=== PATIENT | female | born 1955 | race Caucasian/White ===

== ENCOUNTER 2017-01-07 14:21 | Inpatient (IN) | payer OTHER ==
[~2017-01-07] VITALS: Ht 157.5 cm; Wt 40.4 kg
[2017-01-07 14:45] VITALS: BP 138/80; PULSE 71; RESP 18; O2SAT 99
--- NOTE | 2017-01-07 14:50 | NUR ---
Admit Pt direct admit from Urgent care. Pt A&OX4 and in no acute distress although c/o Rt hip pain extreme with activity. Denies CP, SOB, or nausea. No IV access at this time. Transferred via WC to bed stand pivot. Care continues waiting on orders from
[2017-01-07] MEDS ORDERED: Ondansetron 2 mg/mL 2 mL Inj IVPUSH PRN (14:55)
[2017-01-07] MEDS ORDERED: Alum-Mag Hydrox-Simeth 30 mL Suspension PO PRN (14:55)
[2017-01-07] MEDS ORDERED: Polyethylene Glycol (PEG) 17 Gm Powder PO PRN (14:55)
[2017-01-07] MEDS ORDERED: HYDROmorphone 1 mg/mL Inj IVPUSH PRN (15:00)
--- NOTE | 2017-01-07 15:04 | PCM.HPMED ---
Subjective Date of Service Jan 07, 2017 Primary Provider: Admitting Physician: Juan Carlos Tate MD Primary Care Physician: Rian Attending Physician: Juan Carlos Tate MD Admit Status: Direct Admit, Full Admit, Admit to Red Team Chief Complaint: Transferred from urgent care clinic for right hip fracture. GLF/1 hr History of Present Illness: 61-year-old lady with no significant past medical history except IBS was transferred from urgent clinic for direct admission for right hip fracture. 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 . A coworker helped her sit up in chair and brought her to urgent care clinic. XR done at showed right femoral neck fracture and transferred for admission Patient states she was seen by PCP > 2yrs ago . No known medical issues except IBS with intermittent diarrhea and constipation. Denies HTN,DM,HLD. She states she is physically active and able to ambulate and take flights of stairs without any chest pain or dyspnea. Current everyday smoker,1/2 pack/day . Never diagnosed with COPD. Denies dyspnea Review of Systems: Comprehensive review of systems performed, pertinent positives and negatives included in history of present illness Allergies Coded Allergies: morphine (Verified Adverse Reaction, Intermediate, 01/07/17) vomitting Home Medications None except Pepto-Bismol [id number] as needed for dyspepsia PMH IBS Surgical History Right wrist carpal tunnel surgery 2 Family History Mother alive at 95 with history of hypertension Father at 65 due to metastatic lung cancer Has 1 sister age 65 no known medical problems Lives with her of 20 years Social History Hx Alcohol Use: No Hx Substance Use: No Hx Tobacco Use: Yes Smoking Status: Current Every Day Smoker (1/2 pack a day for more than 30 years ) Living Arrangement: with Family (with of 20 years and 2 dogs ) Exam Vital Signs Gen. patient is lying comfortably in hospital bed, underweight HEENT: Head is normocephalic atraumatic, Pupils equal and reactive, extraocular movements intact, Lungs clear to auscultation bilaterally Heart regular rate and rhythm without murmurs gallops or rubs Abdomen soft nontender without hepatosplenomegaly Extremities right hip tenderness on passive movement Psych alert and oriented to person place and time Neuro cranial nerves II through XII are grossly intact Lymph: There is no lymphadenopathy appreciated in the cervical supra infraclavicular regions : no ho Lab and Diagnostics X-Rays, CTs and MRIs PROCEDURE: X-RAY RIGHT FEMUR, TWO VIEWS ([id number]) INDICATIONS: RT HIP PAIN AFTER INJURY TECHNIQUE: 2 views of the femur were acquired. COMPARISON: None. FINDINGS: Bones: Mildly displaced fracture of the right femoral neck. Soft tissues: No suspicious soft tissue calcifications or masses. IMPRESSION: Right femoral neck fracture. Dictated by: Edith Fuller M.D. on 01/07/2017 at 12:55 Assessment & Plan 61-year-old lady with no significant past medical history except IBS was transferred from urgent clinic for direct admission for right hip fracture. # Right femoral neck fracture,acute,poa -pain control with dilaudid, reports history of vomiting with morphine, Percocet for moderate pain -preop workup ,ekg,cxr ,cbc,cmp.UA pending -orthopedics Dr Longo reportedly notified by ,will notify her patient's arrival -dvt ppx post op lovenox # current smoker -nicotine patch prn # History of IBS, stable Full code per patient Patient admitted under inpatient status with expected length of stay > 2 midnights for severity of present symptoms, complexities of treatment plan and risk for adverse events Pain Evaluation: Adequate Pain Control Resuscitation Status: CPR: Attempt Resuscitation Juan Carlos Tate MD Jan 07, 2017 15:04
--- NOTE | 2017-01-07 15:20 | DRSVH ---
PROCEDURE: X-RAY CHEST ONE VIEW, PORTABLE ([id number]) INDICATIONS: preop TECHNIQUE: One view of the chest was acquired. COMPARISON: None. FINDINGS: Surgical changes and devices: None. Lungs and pleura: No pleural effusions or pneumothorax. Lungs are clear. Mediastinum: Mediastinal contours appear normal. Heart size is normal. Bones and chest wall: No suspicious bony lesions. Overlying soft tissues appear unremarkable. IMPRESSION: No acute process. Dictated by: Edith Fuller M.D. on 01/07/2017 at 15:19 Approved by: Edith Fuller M.D. on 01/07/2017 at 15:19
[2017-01-07 15:47] VITALS: PULSE 78
[2017-01-07 15:56] LABS: MONOCYTES % (AUTO) 6.9 % (4-12); NEUTROPHILS % (AUTO) 86.5 % (40-74)
[2017-01-07 15:57] LABS: BASOPHILS % (AUTO) 0.2 % (0-3); EOSINOPHILS % (AUTO) 0.1 % (0-5); Mean Corpuscular Hemoglobin 31.3 pg (27.0-35.0); Platelet Count 164 bil/L (150-400)
[2017-01-07 16:13] LABS: Magnesium 1.9 mg/dL (1.6-2.6)
--- NOTE | 2017-01-07 17:28 | NUR ---
Beasley Beasley catheter placed per orders from MD Longo. Beasley placed with no issues. Strict bedrest until Sx Per MD Longo. Care continues
[2017-01-07] MEDS: Ketorolac 15 mg/mL Inj IVPUSH PRN (17:57)
[2017-01-07] MEDS: D5 0.45% NaCl + KCl 20 mEq/L 1,000 ML IV SCH (17:58)
--- NOTE | 2017-01-07 18:14 | CONS ---
[address] [address] CONSULTATION REPORT PATIENT: OBDULIA SCHMID : 1955 MR#: [id number] ADMIT: 01/07/2017 JOB ID: [id number] DATE OF SERVICE: ORTHOPEDIC CONSULTATION: CPT code 05060-77 CHIEF COMPLAINT: This is a 61-year-old female, who tripped at work, sustaining a valgus impacted right femoral neck fracture. The patient is having moderate discomfort. The patient was seen in Urgent Care. X-rays revealed she had an impacted femoral neck fracture and she was then admitted to the hospitalist service. PAST MEDICAL HISTORY: Positive for irritable bowel syndrome and patient is somewhat malnourished at 80 pounds. The patient does smoke a half pack of cigarettes every day. 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 ALLERGIES: MORPHINE. PRIOR SURGERY: She has had bilateral carpal tunnel surgeries. FAMILY HISTORY: Positive for hypertension and lung cancer. The patient's significant other is her of 20 years. SOCIAL HISTORY: Patient does not drink. She does smoke daily. REVIEW OF SYSTEMS: HEENT: Denies any blurring of vision or decreased hearing. Respiratory: No shortness of breath. Cardiovascular: No chest pain. GI: No nausea, vomiting. : No dysuria. Musculoskeletal: Right hip pain. Neurologic: No headache or dizziness. Hematologic: No easy bleeding or bruising. PHYSICAL EXAMINATION: A 157 cm, 40.4 kg malnourished female. She has irritable bowel syndrome and evidently has a very limited diet. Temperature 36.9, pulse 71, respiration 18, blood pressure 138/80. Pulse ox of 99. The patient is resting in bed. She is complaining of right hip pain. The leg does not appear to be shortened. Peripheral pulses are full. Motor and sensory testing intact. Calves are soft. LABORATORY TESTING: White count 23,600, hemoglobin 14.6, hematocrit 42.5, platelet count 164,000. Sodium 140, potassium 3.7, chloride 101, CO2 24, BUN 10, creatinine 0.58. Random glucose at 104. Liver function tests within normal limits. Urinalysis is still pending. X-RAYS: Chest x-ray shows no acute pulmonary process. Pelvic x-ray and right hip x-ray shows that she has a valgus impacted right femoral neck fracture. IMPRESSION: Valgus impacted right femoral neck fracture. Leukocytosis, possibly secondary to stress reaction from the fall. This will need to be repeated. PLAN: I have reviewed the x-rays with the patient. She is aware if the fracture stays nondisplaced and impacted, she could be treated with cannulated screw fixation. If, however, the fracture shifts in position, she would require a hip prosthesis. I have explained the risks and benefits of surgery to the patient. She is aware of the risks for bleeding, infection, pain, and stiffness, possibility for damage to surrounding neurovascular structures, potential for DVT, pulmonary emboli, UT, and potential significant cardiopulmonary event. Surgical consent has been signed. We will keep the patient n.p.o. after midnight. We will order Ancef 2 g IV preoperatively. I would like to see the white count improve in time. Guevara catheter will be placed to keep the patient from trying to mobilize on and off the bedpan frequently. The patient is to remain n.p.o. after midnight. I did indicate to the patient that if screws were placed that her smoking may well deter the healing and therefore any amount of smoking she could decrease would be quite beneficial. CC: [facility] Orthopedics
[2017-01-07 20:40] VITALS: BP 108/56; PULSE 63; RESP 20; O2SAT 96
[2017-01-07 23:12] VITALS: PULSE 63
[2017-01-08] VITALS (15 sets, daily range): BP systolic 109–146; BP diastolic 62–78; PULSE 53–89; RESP 12–20; O2SAT 93–100
[2017-01-08] MEDS: Ketorolac 15 mg/mL Inj IVPUSH PRN ×3 (00:23→19:45)
[2017-01-08 05:55] LABS: APPEARANCE,URINE CLEAR (CLEAR,HAZY); COLOR,URINE YELLOW (YELLOW); OCCULT BLOOD,URINE LARGE (NEGATIVE); PH,URINE 6.5 (5.0-8.0); UROBILINOGEN,URINE NORMAL (NORMAL)
--- NOTE | 2017-01-08 05:58 | NUR ---
PAIN/ACTIVITY: Resting in bed tonight, made no attempts to get oob. Was medicated with IV Toradol x1, helpful for pain control. NPO through the night for possible surgery today. Urine sample sent to lab this am. .
[2017-01-08] MEDS ORDERED: CeFAZolin Inj 2 GM in IV Premix 1 EACH IV SCH (06:00)
[2017-01-08 08:33] LABS: BASOPHILS % (AUTO) 0.2 % (0-3); EOSINOPHILS % (AUTO) 0.7 % (0-5); MONOCYTES % (AUTO) 10.2 % (4-12); Mean Corpuscular Hemoglobin 31.3 pg (27.0-35.0); NEUTROPHILS % (AUTO) 74.4 % (40-74); Platelet Count 132 bil/L (150-400)
[2017-01-08 08:50] LABS: INR 0.99 ratio
[2017-01-08] MEDS: D5 0.45% NaCl + KCl 20 mEq/L 1,000 ML IV SCH (10:24)
--- NOTE | 2017-01-08 12:23 | DRSVH ---
PROCEDURE: X-RAY RIGHT HIP COMPLETE, MINIMUM TWO VIEWS ([id number]) INDICATIONS: femoral neck fracture TECHNIQUE: AP pelvis with lateral view(s) of the right hip(s). COMPARISON: [facility], , XR PELVIS W LATERAL HIP RT, 01/07/2017, 12:26. FINDINGS: Bones: Displaced, transcervical fracture of the proximal right femur is noted. Soft tissues: The visualized bowel gas pattern is normal. No suspicious soft tissue calcifications. IMPRESSION: Transcervical proximal right femur fracture. Dictated by: Myriam Gore MD, PhD on 01/08/2017 at 11:20 Approved by: Myriam Gore MD, PhD on 01/08/2017 at 11:21
--- NOTE | 2017-01-08 12:45 | PCM.PNMED ---
Subjective Date of Service Jan 08, 2017 Subjective pain controlled Exam Vital Signs Vital Sign - Last Date Time Temp Pulse Resp B/P Pulse Ox O2 Delivery O2 Flow Rate FiO2 01/08/17 10:01 70 01/08/17 07:55 36.7 18 113/72 98 Room Air Intake and Output 01/07/17 01/07/17 01/08/17 Cumulative From/Thru 14:59 22:59 06:59 01/07/17 15:28 - 01/08/17 06:51 Intake Total 400 ml 890 ml 1290 ml Output Total 300 ml 325 ml 625 ml Balance 100 ml 565 ml 665 ml Intake Oral 400 ml 200 ml 600 ml IV Total 690 ml 690 ml Output Urine Total 300 ml 325 ml 625 ml # Bowel Movements 0 0 0 Exam Gen. patient is lying comfortably in hospital bed, underweight HEENT: Head is normocephalic atraumatic, Pupils equal and reactive, extraocular movements intact, Lungs clear to auscultation bilaterally Heart regular rate and rhythm without murmurs gallops or rubs Abdomen soft nontender without hepatosplenomegaly Extremities right hip tenderness on passive movement Psych alert and oriented to person place and time Neuro cranial nerves II through XII are grossly intact Lymph: There is no lymphadenopathy appreciated in the cervical supra infraclavicular regions : no ho IVs and Medications Medications Reviewed: Medications were reviewed in detail Lab and Diagnostics Result Diagram: 01/08/17 0820 01/07/17 1544 X-Rays, CTs and MRIs PROCEDURE: X-RAY RIGHT FEMUR, TWO VIEWS ([id number]) INDICATIONS: RT HIP PAIN AFTER INJURY TECHNIQUE: 2 views of the femur were acquired. COMPARISON: None. FINDINGS: Bones: Mildly displaced fracture of the right femoral neck. Soft tissues: No suspicious soft tissue calcifications or masses. IMPRESSION: Right femoral neck fracture. Dictated by: Edith Fuller M.D. on 01/07/2017 at 12:55 PROCEDURE: X-RAY RIGHT HIP COMPLETE, MINIMUM TWO VIEWS ([id number]) INDICATIONS: femoral neck fracture TECHNIQUE: AP pelvis with lateral view(s) of the right hip(s). COMPARISON: [facility], CR, XR PELVIS W LATERAL HIP RT, 01/07/2017 , 12:26. FINDINGS: Bones: Displaced, transcervical fracture of the proximal right femur is noted. Soft tissues: The visualized bowel gas pattern is normal. No suspicious soft tissue calcifications. IMPRESSION: Transcervical proximal right femur fracture. Dictated by: Myriam Gore MD, PhD on 01/08/2017 at 11:20 Assessment & Plan 61-year-old lady with no significant past medical history except IBS was transferred from urgent clinic for direct admission for right hip fracture. # Right femoral neck fracture,acute,poa -pain control with dilaudid, reports history of vomiting with morphine, Percocet for moderate pain -preop workup ,ekg pending,cxr unremarkable -orthopedics Dr Longo consulted -dvt ppx post op lovenox #Asymptomatic UTI -UA with pyuria. Urine culture pending. Started ceftriaxone. # GLF -Patient states it is mechanical.UTI may be contributing. -No further workup # Initial leukocytosis -Likely stress reaction,UTI contributing # current smoker -nicotine patch prn # History of IBS, stable Full code per patient Patient admitted under inpatient status with expected length of stay > 2 midnights for severity of present symptoms, complexities of treatment plan and risk for adverse events VTE Mechanical Devices: Intermittant Pneumatic CD Resuscitation Status: CPR: Attempt Resuscitation Juan Carlos Tate MD Jan 08, 2017 12:45
[2017-01-08] MEDS ORDERED: cefTRIAXone Inj 1,000 MG in Dextrose 5% Minibag Plus 50 ML IV SCH (12:50)
--- NOTE | 2017-01-08 14:28 | NUR ---
NUTRITION ASSESSMENT: ASSESS: 61YO F admit with hip fx, made NPO for possible surgery today. Previously 100% po x 1 meal. PMHX: IBS DIET: NPO. Prev General 100% x 1 meal. LABS: Alb 4.7, Glu 104 MEDS: Reviewed GI:No BM WEIGHT: 40.4kg BMI: 16.3 EST.NEEDS: 4757-8944 kcal, 60-75g pro (30-35kcal/kg;1.2-1.5g/kg IBW) NUTRITION DIAGNOSIS: (1) Increased energy needs related to underweight status as evidenced by BMI 16.3. INTERVENTION: (1) As diet advances will include high kcal/protein supplements (Ensure) BID. MONITOR/EVALUATE: PO intake, lab values, diet advancement. F/U per moderate risk.
--- NOTE | 2017-01-08 15:15 | NUR ---
Pt to OR Pt to OR; consent in chart signed, A&Ox3, bedrest, ho cath draining to gravity, IV SL, RA, SPO2 high 90's; pain at tolerable level per pt. IV Ancef given to transporters, family in room. Report called to ORShannan.
[2017-01-08] MEDS ORDERED: Lactated Ringer's 1,000 ML IV ONE (16:18)
[2017-01-08] MEDS ORDERED: Bupivacaine-MPF 0.5% 30 mL Inj INFILTRATE ONE (17:02)
[2017-01-08] MEDS ORDERED: Lactated Ringer's 1,000 ML IV SCH (17:07)
[2017-01-08] MEDS ORDERED: Lactated Ringer's 500 ML IV PRN (17:07)
--- NOTE | 2017-01-08 17:07 | PCM.HPANE ---
Patient Data Date of Service: Jan 08, 2017 Surgeon Admitting Provider:Juan Carlos Tate MD Attending Provider:Juan Carlos Tate MD Primary Care Physician:Rian Other Provider: Reason for Visit Hip Fracture HIP FRACTURE Ht/WT & BMI Height (Feet): 5 Height (Inches): 2.00 Weight (Kilograms): 40.400 Body Mass Index 16.39 Allergies Coded Allergies: milk (Verified Allergy, Severe, Nausea,Vomiting,Diarrhea, extreme pain, ) morphine (Verified Adverse Reaction, Intermediate, Nausea,Vomiting, ) vomitting Past Anesthesia History Anesthesia History: Denies:: Abnormal Airway, Anesthesia Reactions Diabetes History Hx Diabetes?: No MRSA MRSA: No Medications Home Meds Incl Beta Joe: No No Active Prescriptions or Reported Meds History History of ENT Problems?: Yes HEENT History: Positive for:: Sinus Problem Denies:: Abnormal Airway Cataracts Dysphagia Glaucoma Denture Type: Full- Upper Teeth Condition: Within Normal Limits Hx of Heart Problems?: No Cardiovascular History: Denies:: Cardiac Surgery Chest Pain Congestive Heart Failure Edema Heart Murmur Hypertension Irregular Heartbeat Pacemaker Thrombophlebitis Hx of Respiratory Problem?: Yes Respiratory History: Positive for:: Pneumonia Denies:: Asthma COPD Chest Surgery Dyspnea Emphysema Hemoptysis Tuberculosis Hx Neurologic Problems?: No Neurological History: Denies:: Alzheimer's Disease CVA Dementia Dizziness Headaches Parkinson's Disease Seizures Hx of GI Problems?: No Other GI Pertinent History: IBS Hx of Problems?: No Genitourinary History: Denies:: HX of Hemodialysis Kidney Stones Urinary Tract Infection HX of Peritoneal Dialysis: No Female Hx: Positive for:: Problems with Breasts? (Benign tumor, s/p R. lumpectomy) Denies:: Currently Endometriosis Pelvic Inflammatory Skin History: Denies:: Pressure Ulcers Hx Musculoskeletal Problems?: Yes Musculoskeletal History: Denies:: Back Injury Joint Replacement Musculoskeletal Trauma Hx of Psycho/Social Problems?: No Psycho Social History: Denies:: Anxiety Bipolar Disorder Hx Depression Suicide Attempt Hx Surgeries?: Yes (Carpal tunnel surgery) Hx Any Other Health Problems?: Yes Other History: Denies:: Cancer Hospitalization Thyroid Disease History Blood Transfusions: Positive for:: Accept Blood Products? Denies:: Blood Transfuse Reaction Blood Transfusions Hx Diabetes: No Hx Alcohol Use: NoHx Substance Use: No Smoking Status: Current Every Day Smoker Have You Smoked inLast 12 mo: YesApprox How Many Cigarettes/day: 10 cigarettes /day Stop/Bang Treated for Sleep Apnea?: No Do You Have a CPAP Machine?: No S-Snoring: Do You Snore Loudly: No T-Tired: feel tired, fatigued: No O-Obsered: Observed not breath: No P-Blood Pressure: treated: No B- Body Mass Index > 35 kg/m2: No A- Age over 50: Yes N- Neck Large Circumference: No G- Gender Male: No GREGORIA Total Score: 0 GREGORIA Risk Assessment: Low Risk, <3 Yes Risk Assessment Category Category 1A: Patient has history of documented sleep apnea, and HAS NOT received any narcotic, sedative or anesthesia administration during this stay. Category 1B: Patient has history of documented sleep apnea, and HAS received any narcotic , sedative or anesthesia administration during this stay Category 2: Patient has SUSPECTED Obstructive Sleep Apnea, and HAS received any narcotic , sedative or anesthesia administration during this stay. Category 3: Patient has SUSPECTED Obstructive Sleep Apnea and HAS NOT received narcotic, sedative or anesthesia administration during this stay. Category 4: Outpatient in Procedural Areas with known sleep apnea or who screen positive for High Risk via the STOP/BANG questionnaire. Exam Exam Vital Signs Vital Signs Date Time Temp Pulse Resp B/P Pulse Ox O2 Delivery O2 Flow Rate FiO2 01/08/17 13:03 37.2 59 18 114/71 98 Room Air 01/08/17 10:01 70 General Appearance: Alert, Oriented X3 HEENT/AIRWAY: MP 1 Lungs: Clear to Auscultation Heart: Exam Unremarkable Meds/Labs/Diagnostics Admission Meds Current Medications Ceftriaxone Sodium/Dextrose/ Water (Rocephin Inj/ D5W Minibag Plus) 50 ml @ 100 mls/hr Q24H IV Last administered on 01/08/17t 14:04; Start 01/08/17 at 12: 50 Labs Test 01/07/17 15:44 01/08/17 05:35 01/08/17 08:20 Sodium Level 140mEq/L (134-144) Potassium Level 3.7mEq/L (3.5-5.2) Chloride Level 101mEq/L (97-108) Carbon Dioxide Level 24mmol/L (18-29) Blood Urea Nitrogen 10mg/dL (8-27) Creatinine 0.58mg/dL (0.57-1.00) Estimat Glomerular Filtration Rate 151mL/min (>59) Glucose Level 104mg/dL (60-99) Calcium Level 9.7mg/dL (8.5-10.1) Magnesium Level 1.9mg/dL (1.6-2.6) Total Bilirubin 0.4mg/dL (0.0-1.2) Aspartate Amino Transf (AST/SGOT) 25U/L (0-50) Alanine Aminotransferase (ALT/SGPT) 20U/L (0-32) Alkaline Phosphatase 70U/L (25-165) Total Protein 7.7g/dL (6.4-8.4) Albumin 4.7g/dL (3.4-5.0) Urine Color Yellow (YELLOW) Urine Appearance Clear (CLEAR,HAZY) Urine pH 6.5 (5.0-8.0) Urine Specific [place] 1.015 (1.003-1.035) Urine Protein Negativemg/dL (NEG,TRACE) Urine Glucose (UA) Negativemg/dL (NEGATIVE) Urine Ketones Negativemg/dL (NEGATIVE) Urine Occult Blood Large (NEGATIVE) Urine Nitrite Negative (NEGATIVE) Urine Bilirubin Negative (NEGATIVE) Urine Urobilinogen Normalmg/dL (NORMAL) Urine Leukocyte Esterase Trace (NEGATIVE) Urine RBC 3-10/hpf (0-2) Urine WBC 11-50/hpf (0-5) Urine Epithelial Cells Occasional/hpf (NONE-MOD) Urine Crystals None seen (NONE SEEN) Urine Bacteria Few/hpf (NONE-FEW) Urine Hyaline Casts Occasional/lpf (NONE) Urine Granular Casts None seen (NONE SEEN) Urine Waxy Casts None seen (NONE SEEN) Urine Red Blood Cell Casts None seen (NONE SEEN) Urine White Blood Cell Casts None seen (NONE SEEN) Urine Mucus Present (None Seen) Urine Trichomonas None seen (NONE SEEN) Urine Yeast None (NONE SEEN) Urinalysis Comment None Urine Culture Reflexed Indicated White Blood Count 9.9th/mm3 (3.8-10.1) Red Blood Count 3.99mil/mm3 (3.90-5.20) Hemoglobin 12.5g/dL (12.0-15.6) Hematocrit 37.1% (35.0-46.0) Mean Corpuscular Volume 93.0fL (81-100) Mean Corpuscular Hemoglobin 31.3pg (27.0-35.0) Mean Corpuscular Hemoglobin Concent 33.7% (32.0-37.0) Red Cell Distribution Width 12.6% (12.3-15.4) Platelet Count 132bil/L (150-400) Neutrophils (%) (Auto) 74.4% (40-74) Lymphocytes (%) (Auto) 14.3% (14-46) Monocytes (%) (Auto) 10.2% (4-12) Eosinophils (%) (Auto) 0.7% (0-5) Basophils (%) (Auto) 0.2% (0-3) Prothrombin Time 10.6sec (8.1-12.5) Prothromb Time International Ratio 0.99ratio Plan Impression Patient chart reviewed, patient interviewed and anesthestic plan with risks, benefits, and alternatives discussed, and informed consent obtained. NPO per Anesth. Guidelines: Yes ASA Physical Status: ASA1 Normal Healthy Anesthetic Plan: GA Bene/Risks/Altern/Consents: Yes HP Complete Prior to Induction: Yes Dayron Mott MD Jan 08, 2017 17:07
[2017-01-08] MEDS ORDERED: Dexamethasone 4 mg/mL Inj IVPUSH PRN (17:10)
[2017-01-08] MEDS ORDERED: Phenylephrine 10,000 mCg/mL Inj IVPUSH PRN (17:10)
[2017-01-08] MEDS ORDERED: MetoCLOpramide 5 mg/mL 2 mL Inj IVPUSH PRN (17:10)
[2017-01-08] MEDS ORDERED: HYDROmorphone 1 mg/mL Inj IVPUSH PRN (17:10)
[2017-01-08] MEDS ORDERED: EPHEDrine Sulfate 50 mg/mL Inj IVPUSH PRN (17:10)
[2017-01-08] MEDS ORDERED: Ondansetron 2 mg/mL 2 mL Inj IVPUSH PRN ×2 (17:10→18:30)
--- NOTE | 2017-01-08 18:13 | NUR ---
pt is off unit to OR Addendum: 01/08/17 at 1814 by ELPIDIO GRANDE CNA Amended: Links added.
--- NOTE | 2017-01-08 18:22 | PCM.ANEP1 ---
Post Anesthesia PACU Phase 1 Assessment Vital Signs Vital Signs Date Time Temp Pulse Resp B/P Pulse Ox O2 Delivery O2 Flow Rate FiO2 01/08/17 18:15 67 12 132/78 95 Room Air 01/08/17 18:10 36.7 82 16 133/63 96 Room Air 01/08/17 13:03 37.2 59 18 114/71 98 Room Air Anesthetic Administered: GA Level of Alertness: Awake, talking Pain: Yes (RN Awares and got her pain meds) Pain Scale Score: 4 Nausea or Vomiting: No CV Function & Hydration Stable: Yes Airway Device: Oxygen Delivery: Room Air Lungs: Clear to Auscultation PACU Phase 2 Assessment Complications: No Follow up Care: N/A Patient Instructions Provided: N/A Dayron Mott MD Jan 08, 2017 18:22
[2017-01-08] MEDS ORDERED: Sodium Biphos-Phos 133 mL Enema RECTAL PRN (18:30)
[2017-01-08] MEDS ORDERED: Polyethylene Glycol (PEG) 17 Gm Powder PO PRN (18:30)
[2017-01-08] MEDS ORDERED: Magnesium Hydroxide 10 mL Oral Concentration PO PRN (18:30)
[2017-01-08] MEDS ORDERED: diphenhydrAMINE 25 mg Capsule PO PRN (18:30)
[2017-01-08] MEDS: fentaNYL-PF 50 mCg/mL 2 mL Inj IVPUSH PRN ×4 (18:34→18:57)
[2017-01-08] MEDS: Senna-Docusate 8.6-50 mg Tablet PO SCH (19:58)
--- NOTE | 2017-01-08 20:21 | DRSVH ---
PROCEDURE: X-RAY PELVIS W/LAT HIP (RT) ([id number]) INDICATIONS: POST KIM TECHNIQUE: AP pelvis with lateral view(s) of the right hip(s). COMPARISON: [facility], CR, XR HIP 2VW RT, 01/08/2017, 12:04. [facility], CR , XR HIP 2VW RT, 01/08/2017, 16:47. [facility], CR, XR PELVIS W LATERAL HIP RT, 7, 12:26. FINDINGS: Bones: Open reduction and internal fixation of right femoral neck fracture with 3 surgical screws tra versing the right femoral neck. Alignment is improved. Pelvic ring appears intact. No suspicious suzanne ny lesions. Soft tissues: The visualized bowel gas pattern is normal. No suspicious soft tissue calcifications. IMPRESSION: Open reduction and internal fixation of right femoral neck fracture. Dictated by: Florencia Ledbetter M.D. on 01/08/2017 at 20:17 Approved by: Florencia Ledbetter M.D. on 01/08/2017 at 20:19
--- NOTE | 2017-01-08 22:00 | NUR ---
Post Op Pt. arrived from PACU at ~1930. A&Ox3. 2 liters of o2 via nc. Stating 99%. Pt.'s ho catheter and peripheral IV patent and intact. Ho cath draining yellow urine. Pt. reported pain and nausea upon arriving on floor. IV Zofran and IV Toradol given and effective. Will continue to monitor.
[2017-01-09] MEDS: Sodium Chloride LOK Flush 10 mL Syringe IV SCH ×3 (00:10→17:36)
[2017-01-09] MEDS ORDERED: CeFAZolin Inj 2 GM in Dextrose 5% 50 ML IV SCH (00:30)
--- NOTE | 2017-01-09 01:42 | OP ---
[address] [address] OPERATIVE REPORT PATIENT: OBDULIA SCHMID : 1955 MR#: [id number] ADMIT: 01/07/2017 JOB ID: [id number] DATE OF SURGERY: 01/08/2017 PREOPERATIVE DIAGNOSIS(ES): Valgus impacted right femoral neck fracture, ICD 10 code S72.001A. POSTOPERATIVE DIAGNOSIS(ES): Valgus impacted right femoral neck fracture, ICD 10 code S72.001A. PROCEDURE: Closed reduction and cannulated screw fixation, valgus impacted right femoral neck fracture. SURGEON: Kenneth Longo MD IMPLANTS UTILIZED: Synthes 7.3 mm cannulated screws, CPT code 69753. ANESTHESIA: General. ESTIMATED BLOOD LOSS: 35 mL. DRAINS: None. COMPLICATIONS: None. SPONGE AND NEEDLE COUNT: Correct. INDICATIONS: A 61-year-old female, who tripped and fell on January 07, 2017, sustaining a valgus impacted right femoral neck fracture. Repeat x-rays today confirmed that the fracture itself had not shifted. Decision was therefore made to place cannulated screws. PROCEDURE IN DETAIL: Under adequate general anesthetic, the patient was carefully placed on an Stuart fracture table. The right leg was placed in a very minimal amount of traction and the left leg was placed in the boot but left loose, and it was then lowered to a scissor technique to allow visualization with image intensification. After appropriate time-out was called, image intensification confirmed good position of the fracture on AP and lateral views. The right leg was prepped and draped in sterile fashion. A small incision was fashioned over the lateral aspect of the greater trochanter down through the tensor fascia joey and vastus lateralis muscle. The cannulated guide was then utilized to introduce three guide pins in a triangle fashion in the femoral neck and head. The medial and lateral guide pins were placed slightly anterior and the inferior triangle pin was placed posterior in the midline. Image intensification confirmed good position of the guide pins on AP and lateral views. Each of the guide pins were subsequently measured. Utilizing the cannulated guide, this was utilized to drill over the guide pin. This was only drilled for a small portion of the guide pin. Appropriate length short lag screws were then placed. I utilized two 80 mm screws and one 75 mm partially threaded lag screw. Each of the screws were placed across the fracture site. Image intensification confirmed good position of screws in AP and lateral views. The guide pins were subsequently removed. Permanent x-rays were taken with image intensification. The wound was irrigated with saline. Vastus lateralis was closed with a running suture of 0 Vicryl. The tensor fascia joey was closed with a [id number] suture of 0 Vicryl. Subcutaneous layers were closed with a few interrupted sutures of 2-0 Vicryl. Additional subcutaneous layers were closed with some 3-0 Monocryl and the skin was reapproximated with running subcuticular suture of 3-0 Monocryl. Mastisol and Steri-Strips were applied. A small dry sterile dressing was applied. The patient was taken carefully off the Stuart table and placed in her bed in stable condition. She was taken to the recovery room in stable condition. Sponge and needle count correct. No complications. PLAN: The patient may be partial weightbearing about 50% of her body weight with a rolling walker. I anticipate she will probably be able to mobilize with a walker and be able to be discharged to home in a couple of days. She is to remain off work at this time. 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 She will be seen in the office in two weeks for wound check and repeat x-rays. The patient is fully aware there is always the potential for delayed healing of these fractures as well as potential for loss of fracture reduction. She needs to be cautious as not to fall and break below the screws.
[2017-01-09 04:37] VITALS: BP 127/68; PULSE 59; RESP 16; O2SAT 96
[2017-01-09] MEDS: Ketorolac 15 mg/mL Inj IVPUSH PRN (05:23)
[2017-01-09 06:18] LABS: BASOPHILS % (AUTO) 0.1 % (0-3); EOSINOPHILS % (AUTO) 0.1 % (0-5); MONOCYTES % (AUTO) 9.7 % (4-12); Mean Corpuscular Hemoglobin 31.1 pg (27.0-35.0); Mean Corpuscular Volume 92.5 fL (81-100); NEUTROPHILS % (AUTO) 79.3 % (40-74); Platelet Count 126 bil/L (150-400)
[2017-01-09] MEDS ORDERED: fentaNYL-PF 50 mCg/mL 2 mL Inj ONE (07:39)
[2017-01-09] MEDS ORDERED: Dexamethasone 4 mg/mL Inj ONE (07:39)
[2017-01-09] MEDS ORDERED: EPHEDrine/NS 5 mg/mL 5 mL Syringe ONE (07:39)
[2017-01-09] MEDS ORDERED: Propofol 10,000 mCg/mL 20 mL Inj ONE (07:39)
[2017-01-09] MEDS ORDERED: Ondansetron 2 mg/mL 2 mL Inj ONE (07:39)
[2017-01-09] MEDS: Senna-Docusate 8.6-50 mg Tablet PO SCH ×2 (08:30→20:08)
--- NOTE | 2017-01-09 09:15 | PCM.PNORTH ---
Subjective Date of Service: Jan 09, 2017 Visit Information: Reason for Visit Hip Fracture Surgery/Surgery Date R HIP CANULATED SCREW 01/08/17 Post-Op Day # Date of Admission: Jan 07, 2017 at 14:34 Hospital Day # Subjective Status post day #1 right hip cannulated screw pinning. Patient states she is feeling pretty good today. Her pain is mild, feels that she is doing pretty well. She would definitely like to go home as soon as tomorrow if possible. She does have 5 steps to get into her home but feels like she should be able to do this. Postop General: No Complaints, No Shortness of Breath, No Chest Pain Objective Exam Objective Patient is alert and oriented 3. Answering questions appropriately. Patient is sitting up in the bed and not in acute distress today. Dressing is clean dry and intact. Calf is soft and nontender. Sensation and pulses intact, patient able to wiggle toes. Vital Signs and I/O Vital Sign - Last Date Time Temp Pulse Resp B/P Pulse Ox O2 Delivery O2 Flow Rate FiO2 01/09/17 04:37 36.8 59 16 127/68 96 Room Air 01/08/17 19:05 2 Intake and Output 01/08/17 01/08/17 01/09/17 Cumulative From/Thru 15:00 23:00 07:00 01/07/17 15:28 - 01/09/17 05:36 Intake Total 688 ml 1309 ml 3287 ml Output Total 800 ml 550 ml 1975 ml Balance -112 ml 759 ml 1312 ml Intake Oral 150 ml 750 ml IV Total 688 ml 1159 ml 2537 ml Output Urine Total 800 ml 550 ml 1975 ml # Bowel Movements 0 Lab & Micro Results Laboratory Tests Test 01/09/17 05:55 White Blood Count 10.8th/mm3 (3.8-10.1) Red Blood Count 3.73mil/mm3 (3.90-5.20) Hemoglobin 11.6g/dL (12.0-15.6) Hematocrit 34.5% (35.0-46.0) Mean Corpuscular Volume 92.5fL (81-100) Mean Corpuscular Hemoglobin 31.1pg (27.0-35.0) Mean Corpuscular Hemoglobin Concent 33.6% (32.0-37.0) Red Cell Distribution Width 12.5% (12.3-15.4) Platelet Count 126bil/L (150-400) Neutrophils (%) (Auto) 79.3% (40-74) Lymphocytes (%) (Auto) 10.5% (14-46) Monocytes (%) (Auto) 9.7% (4-12) Eosinophils (%) (Auto) 0.1% (0-5) Basophils (%) (Auto) 0.1% (0-3) Microbiology 01/08/17 Urine Culture - Preliminary, Resulted No growth to date Result Diagram: 01/09/17 0555 01/07/17 1544 Assessment & Plan Impression Status post day #1 right hip pinning with cannulated screw fixation. Patient's pain is stable, doing pretty well. Motivated to go home. Problems: Plan Patient will begin working with physical therapy today for gait training with front-wheeled walker. Patient able to bear weight to 50%. Patient will utilize Lovenox 30 mg subcutaneous daily for DVT prophylaxis for 3 weeks only. Patient states aspirin makes her stomach very sick and she would like to avoid this and willing to accept the risks. Patient will utilize oral narcotics including [place] while in the hospital for pain control. Anticipate that the patient will stay in the hospital for 1-2 more days. Her goal will be to go home tomorrow if possible. Resuscitation Status: CPR: Attempt Resuscitation Jason King PA-C Jan 09, 2017 09:15
--- NOTE | 2017-01-09 10:12 | DRSVH ---
PROCEDURE: X-RAY RIGHT HIP COMPLETE, MINIMUM TWO VIEWS ([id number]) INDICATIONS: C-ARM ASSISTED RIGHT HIP ARTHROPLASTY TECHNIQUE: Fluoroscopic images were obtained during an operative procedure and submitted for interpr etation following the completion of the procedure. COMPARISON: [facility], CR, XR PELVIS W LATERAL HIP RT, 01/08/2017, 18:35. [facility], CR, XR HIP 2VW RT, 01/08/2017, 12:04. FINDINGS: These fluoroscopic images were performed for intraoperative localization. On these images, right fem oral neck screws are placed. No jessica intraoperative complication is seen. Please correlate with int raoperative findings. IMPRESSION: Normal intraoperative examination. Dictated by: Bandar Bravo M.D. on 01/09/2017 at 10:10 Approved by: Bandar Bravo M.D. on 01/09/2017 at 10:11
[2017-01-09 10:13] VITALS: BP 121/66; PULSE 62; RESP 17; O2SAT 97
[2017-01-09] MEDS: oxyCODONE-Acetamin 5-325 mg Tablet PO PRN (10:19)
[2017-01-09 10:50] VITALS: PULSE 70
--- NOTE | 2017-01-09 11:38 | NUR ---
Evaluation completed. Please go to "Notes" then click on "Assessments and Notes" (bottom left corner of screen). Then select appropriate discipline tab on top of screen.
--- NOTE | 2017-01-09 13:38 | NUR ---
Social Work: Initial Assessment/Multidisciplinary Rounds D: EMR reviewed. Please see Initial Assessment linked to this note for more information. Pt is a 61 year old female admitted IN with a readmit risk score of 0 for hip fracture per H&P. Pt's insurance is [employer] and [facility]. Pt has no PCP at this time. Pt discussed in multidisciplinary rounds, pt is POD 1. PT to evaluate pt today. SW met with pt at bedside to conduct initial assessment. Pt was alert and oriented x3. SW explained role and wrote phone number on white board. SW provided [facility] Discharge Planning Checklist and encouraged pt to contact SW for any discharge planning questions. Pt lives at home with her spouse in [place]. Pt is independent with all ADLs at baseline. Pt uses no DME at baseline, but has a cane available for use at discharge. Pt drives. Pt has no HH or SNF history. Pt has no LTC or VA benefits. Pt has no DPOA on file, paperwork provided. Discussed pt's goals for discharge. Pt is motivated to return home. Pt states that her spouse can get her a walker at discharge, likely. Pt is likely to d/c home with spouse to transport via POV. SW will continue to follow for any additional d/c needs. A: Pt who is independent at baseline and has the capacity for self-care. P: Pt anticipated to discharge home with spouse to transport via POV pending PT evaluation. No SW needs identified, no MD orders received at this time. PT to evaluate pt. SW will continue to follow for needs until time of discharge. JAXON Munoz Addendum: 01/09/17 at 1342 by RAVINDRA LIZAMA Amended: Links added.
--- NOTE | 2017-01-09 14:16 | PCM.PNMED ---
Subjective Date of Service Jan 09, 2017 Subjective pain controlled Exam Vital Signs Vital Sign - Last Date Time Temp Pulse Resp B/P Pulse Ox O2 Delivery O2 Flow Rate FiO2 01/09/17 10:50 70 01/09/17 10:13 36.7 17 121/66 97 Room Air 01/08/17 19:05 2 Intake and Output 01/08/17 01/08/17 01/09/17 Cumulative From/Thru 15:00 23:00 07:00 01/07/17 15:28 - 01/09/17 05:36 Intake Total 688 ml 1309 ml 3287 ml Output Total 800 ml 550 ml 1975 ml Balance -112 ml 759 ml 1312 ml Intake Oral 150 ml 750 ml IV Total 688 ml 1159 ml 2537 ml Output Urine Total 800 ml 550 ml 1975 ml # Bowel Movements 0 Exam Gen. patient is lying comfortably in hospital bed, underweight HEENT: Head is normocephalic atraumatic, Pupils equal and reactive, extraocular movements intact, Lungs clear to auscultation bilaterally Heart regular rate and rhythm without murmurs gallops or rubs Abdomen soft nontender without hepatosplenomegaly Extremities right hip tenderness on passive movement Psych alert and oriented to person place and time Neuro cranial nerves II through XII are grossly intact Lymph: There is no lymphadenopathy appreciated in the cervical supra infraclavicular regions : no ho IVs and Medications Medications Reviewed: Medications were reviewed in detail Lab and Diagnostics Result Diagram: 01/09/17 0555 01/07/17 1544 X-Rays, CTs and MRIs PROCEDURE: X-RAY RIGHT FEMUR, TWO VIEWS ([id number]) INDICATIONS: RT HIP PAIN AFTER INJURY TECHNIQUE: 2 views of the femur were acquired. COMPARISON: None. FINDINGS: Bones: Mildly displaced fracture of the right femoral neck. Soft tissues: No suspicious soft tissue calcifications or masses. IMPRESSION: Right femoral neck fracture. Dictated by: Edith Fuller M.D. on 01/07/2017 at 12:55 PROCEDURE: X-RAY RIGHT HIP COMPLETE, MINIMUM TWO VIEWS ([id number]) INDICATIONS: femoral neck fracture TECHNIQUE: AP pelvis with lateral view(s) of the right hip(s). COMPARISON: [facility], CR, XR PELVIS W LATERAL HIP RT, 01/07/2017 , 12:26. FINDINGS: Bones: Displaced, transcervical fracture of the proximal right femur is noted. Soft tissues: The visualized bowel gas pattern is normal. No suspicious soft tissue calcifications. IMPRESSION: Transcervical proximal right femur fracture. Dictated by: Myriam Gore MD, PhD on 01/08/2017 at 11:20 Additional Diagnostics DATE OF SURGERY: 01/08/2017 PREOPERATIVE DIAGNOSIS(ES): Valgus impacted right femoral neck fracture, ICD 10 code S72.001A. POSTOPERATIVE DIAGNOSIS(ES): Valgus impacted right femoral neck fracture, ICD 10 code S72.001A. PROCEDURE: Closed reduction and cannulated screw fixation, valgus impacted right femoral neck fracture. SURGEON: Kenneth Longo MD IMPLANTS UTILIZED: Synthes 7.3 mm cannulated screws, CPT code 00733. ANESTHESIA: General. ESTIMATED BLOOD LOSS: 35 mL. DRAINS: None. COMPLICATIONS: None. SPONGE AND NEEDLE COUNT: Correct. Assessment & Plan 61-year-old lady with no significant past medical history except IBS was transferred from urgent clinic for direct admission for right hip fracture. # Right femoral neck fracture s/p Closed reduction and cannulated screw fixation , valgus impacted right femoral neck fracture.,acute,poa -pain control with dilaudid, reports history of vomiting with morphine, Percocet for moderate pain -orthopedics Dr Longo consulted -dvt ppx post op lovenox #Asymptomatic UTI -UA with pyuria. Urine culture no growth . Started ceftriaxone.discontinued today # GLF -Patient states it is mechanical.UTI may be contributing. -No further workup # Initial leukocytosis -Likely stress reaction,UTI contributing # current smoker -nicotine patch prn # History of IBS, stable Full code per patient Patient admitted under inpatient status with expected length of stay > 2 midnights for severity of present symptoms, complexities of treatment plan and risk for adverse events VTE Mechanical Devices: Intermittant Pneumatic CD Resuscitation Status: CPR: Attempt Resuscitation Juan Carlos Tate MD Jan 09, 2017 14:16
--- NOTE | 2017-01-09 18:47 | NUR ---
ACTIVITY/PAIN/ Patient has reported very minimal pain throughout the day. Administered 1 tab of percocet prior to first therapy session. Patient did very well, ambulating with FWW and able to maintain 50% WB. Ambulated in hallway with therapy. Guevara catheter was d/c'd in AM and patient was able to void spontaneously. Although complaining of burning sensation when voiding. Order to send another UA was obtained.
[2017-01-09 20:04] LABS: APPEARANCE,URINE CLEAR (CLEAR,HAZY); COLOR,URINE YELLOW (YELLOW); OCCULT BLOOD,URINE SMALL (NEGATIVE); PH,URINE 5.5 (5.0-8.0); UROBILINOGEN,URINE NORMAL (NORMAL)
[2017-01-09 20:30] VITALS: BP 123/72; PULSE 64; RESP 16; O2SAT 94
[2017-01-10 00:18] VITALS: PULSE 64
[2017-01-10 00:30] VITALS: BP 110/63; PULSE 63; RESP 18; O2SAT 95
[2017-01-10] MEDS: Sodium Chloride LOK Flush 10 mL Syringe IV SCH ×2 (00:37→09:26)
--- NOTE | 2017-01-10 03:47 | NUR ---
Pain/activity Pt reporting minimal pain 2/10 and just requested Tylenol at bedtime. Pt getting up SBA and FWW to BR and tolerating activity well. Bulky dressing to right hip is CDI. Pt on tele SR 60s. Pt has been able to sleep through most of shift.
[2017-01-10 04:40] VITALS: BP 124/64; PULSE 61; RESP 20; O2SAT 96
[2017-01-10] MEDS: oxyCODONE-Acetamin 5-325 mg Tablet PO PRN (04:51)
[2017-01-10 07:55] VITALS: BP 122/72; PULSE 70; RESP 18; O2SAT 98
--- NOTE | 2017-01-10 08:48 | PCM.DIMED ---
Discharge Instructions Date of Service Jan 10, 2017 Dates of Hospitalization Jan 07, 2017 at 14:34 Discharge Diagnosis Discharge Diagnosis # Right femoral neck fracture underwent Closed reduction and cannulated screw fixation, acute,poa # Mechanical GLF # current smoker # History of IBS, stable Patient Instructions Patient Instructions You were hospitalist due to Right femoral neck fracture and underwent Closed reduction and cannulated screw fixation . Please continue Lovenox 30 mg subcutaneous daily for DVT prophylaxis for 3 weeks. Follow-up with orthopedics clinic in 2 weeks. Please take Pruden for pain control. Follow-up with PCP in: 1 week Provider: Kenneth Longo MD Follow-up in: 2 weeks Juan Carlos Tate MD Jan 10, 2017 08:48
[2017-01-10] MEDS ORDERED: POLY17PO6 PO (08:50)
[2017-01-10] MEDS ORDERED: OXYC1TAB24 PO (08:50)
[2017-01-10] MEDS ORDERED: DOCU-41 PO (08:50)
[2017-01-10] MEDS ORDERED: LOV30 SUBQ (08:50)
[2017-01-10 09:15] VITALS: PULSE 58
--- NOTE | 2017-01-10 09:15 | PCM.PNORTH ---
Subjective Date of Service: Jan 10, 2017 Visit Information: Reason for Visit Hip Fracture Surgery/Surgery Date R HIP CANULATED SCREW 01/08/17 Post-Op Day # 2 Date of Admission: Jan 07, 2017 at 14:34 Hospital Day # Subjective Patient reports some tenderness at the incision site. Overall she is doing quite well and would like to home today. She understands that she will be 50% weightbearing with a walker. Postop General: No Complaints, No Shortness of Breath, No Chest Pain, Good Appetite Objective Exam Objective Patient is seen sitting up at the edge of bed eating breakfast Vital Signs and I/O Vital Sign - Last Date Time Temp Pulse Resp B/P Pulse Ox O2 Delivery O2 Flow Rate FiO2 01/10/17 07:55 36.7 70 18 122/72 98 Room Air 01/08/17 19:05 2 Intake and Output 01/09/17 01/09/17 01/10/17 Cumulative From/Thru 15:00 23:00 07:00 01/07/17 15:28 - 01/09/17 18:42 Intake Total 914 ml 4201 ml Output Total 1400 ml 3375 ml Balance -486 ml 826 ml Intake Oral 800 ml 1550 ml IV Total 114 ml 2651 ml Output Urine Total 1400 ml 3375 ml # Bowel Movements 0 Lab & Micro Results Laboratory Tests Test 01/09/17 19:30 Urine Color Yellow (YELLOW) Urine Appearance Clear (CLEAR,HAZY) Urine pH 5.5 (5.0-8.0) Urine Specific [place] 1.010 (1.003-1.035) Urine Protein Negativemg/dL (NEG,TRACE) Urine Glucose (UA) Negativemg/dL (NEGATIVE) Urine Ketones Negativemg/dL (NEGATIVE) Urine Occult Blood Small (NEGATIVE) Urine Nitrite Negative (NEGATIVE) Urine Bilirubin Negative (NEGATIVE) Urine Urobilinogen Normalmg/dL (NORMAL) Urine Leukocyte Esterase Small (NEGATIVE) Urine RBC 3-10/hpf (0-2) Urine WBC 6-10/hpf (0-5) Urine Epithelial Cells Moderate/hpf (NONE-MOD) Urine Crystals None seen (NONE SEEN) Urine Bacteria None/hpf (NONE-FEW) Urine Hyaline Casts None/lpf (NONE) Urine Granular Casts None seen (NONE SEEN) Urine Waxy Casts None seen (NONE SEEN) Urine Red Blood Cell Casts None seen (NONE SEEN) Urine White Blood Cell Casts None seen (NONE SEEN) Urine Mucus None seen (None Seen) Urine Trichomonas None seen (NONE SEEN) Urine Yeast None (NONE SEEN) Urinalysis Comment None Urine Culture Reflexed Indicated Microbiology 01/09/17 Urine Culture - Preliminary, Resulted No growth to date Result Diagram: 01/09/17 0555 01/07/17 1544 General Appearance: Alert, Oriented X3, Cooperative, No Acute Distress Extremities: Distal Pulses Palpable, No Compartment Syndrom Noted, Thigh & Calf Soft/Nontender Postop Sensory Motor: Distal Motor Intact, Distal Sensation Intact, NVI Distally SURGICAL WOUND : Wound Location/Description Right hip: Surgical dressing is removed. There is minimal amount of dried serous drainage. The wound is cleansed with hydrogen peroxide. Steri-Strips are intact the wound is closed with Monocryl suture which is running externally to the wound and secured with Steri-Strips. There is no acute drainage or erythema present. There is mild swelling. The wound is dressed with 4 x 4 gauze and Tegaderm dressing Activity: Activity per PT Catheters: None Assessment & Plan Impression POD #2 status post right hip ORIF with cannulated screws Problems: Plan Weightbearin% weightbearing with front-wheeled walker DVT prophylaxis: Lovenox 30 mg subcutaneous 3 weeks. We will not use aspirin after 3 weeks due to patient's sensitivity to aspirin. Physical therapy for transfers, progressive ambulation, therapeutic exercise Wound care: Dressing was changed today by ALEX to 4 x 4 gauze and Tegaderm. Wound care at home: Patient may shower with wound covered. On Sunday the dressing may be removed and patient may shower with wound uncovered. Leave Steri-Strips in place. Do not touch her handle the wound. There are sutures externally at the wound. The patient may shower if the wound has no drainage present. Wound may be uncovered to shower. Let soap and water run over the wound , pat dry and apply a new dressing. Discharge plan: Discharge home today Follow-up plan: In 2 weeks at [facility] with ALEX for wound check and at [address] Longo with x-rays Pain Management: Percocet, Tylenol VTE Prophylaxis: Sub-Q Enoxaparin, SCDs Resuscitation Status: CPR: Attempt Resuscitation BurkeMargaret Mg PA-C Jan 10, 2017 09:15
--- NOTE | 2017-01-10 09:20 | PCM.DIORTH ---
Ortho Discharge Instruction Date of Service: Jan 10, 2017 Dates of Hospitalization Date of Hospital Admission Jan 07, 2017 at 14:34 Providers Admitting Physician: Juan Carlos Tate MD Primary Care Physician: Rian Attending Physician: Juan Carlos Tate MD Activity Discharge Activity-General: Try not to overdue, Be up and about, Balance rest and activity Right Lower Extremity: % of Weight Bearing (50%) Discharge Assist Device: Front Wheeled Walker Dressing and Incisional Care Discharge Dressing Care: Keep dressing clean, dry & intact Discharge Hygiene: May shower (see instructions below) Additional Instructions Discharge Instructions Weightbearin% weightbearing with front-wheeled walker DVT prophylaxis: Lovenox 30 mg subcutaneous 3 weeks. We will not use aspirin after 3 weeks due to patient's sensitivity to aspirin. Wound care at home: Patient may shower with wound covered with the Tegaderm ( plastic) dressing in place On Sunday the plastic dressing may be removed and patient may shower with wound uncovered. Leave Steri-Strips in place. Do not touch or handle the wound. There are sutures externally at the wound. They are held in place with the Steri strips. The patient may shower if the wound has no drainage present. Wound may be uncovered to shower. Let soap and water run over the wound, pat dry and apply a new dressing. Follow Up Plan Follow Up Plan Follow-up and [facility] in 2 weeks with ALEX for wound check, and at [address] Longo with x-rays Call your provider for: Fever, Chills, Shortness of breath, Vomitting, Drainage at incision (that is increasing), Wound redness (that is spreading), Increasing pain (for no reason) Margaret Oglesby PA-C Jan 10, 2017 09:20
--- NOTE | 2017-01-10 09:20 | NUR ---
Social Work- Discharge Data: EMR reviewed. Pt is on day 3 of hospitalization. Pt to discharge today, discharge orders are active at this time. No orders received at this time other than anticipate d/c to home. SW met with pt at bedside to confirm d/c plan. Pt confirms that she has obtained a fww for use at home. PT will work with pt on stairs prior to d/c. Pt to d/c home with her spouse to transport via POV. No additional d/c planning needs. Assessment: Pt who is independent at baseline Plan: Pt to d/c home with spouse to transport via POV. No additional d/c planning needs. Amber Pozo, PENSION CONSULTANT
[2017-01-10] MEDS: Senna-Docusate 8.6-50 mg Tablet PO SCH (09:27)
--- NOTE | 2017-01-10 15:09 | NUR ---
Discharge Pt to discharge to home, waiting for her ride to pick her up. A&Ox3, up to BR ind with FWW, 50% weight bearing R LE, PT taught pt proper use/fit of crutches today to which pt did well with. Pt given written and verbal instructions on dressing change and care of wound, s/s of infection or complications, Lovenox teaching and return demonstration performed, pt given Rx's and instructions on times and dosages of medications to which she states understanding. Pt to f/u with her PCP within 1 week to which she states she does not have, f/u with Dr Longo in 2 weeks and then again in 6 wks with x-ray before appt and phone number of clinic to call and schedule times to which pt states understanding. research staff member wheeled pt and all personal belongings off unit with pt.
--- NOTE | 2017-01-10 17:51 | PCM.DC.MED ---
Discharge Summary Date of Service Jan 10, 2017 Dates of Hospitalization Date of Hospital Admission Jan 07, 2017 at 14:34 Date of Discharge: Jan 10, 2017 Providers: Admitting Physician: Juan Carlos Vaca MD Primary Care Physician: Nopcp Attending Physician: Juan Carlos Vaca MD Diagnosis at Time of Discharge Diagnosis at Time of Discharge # Right femoral neck fracture underwent Closed reduction and cannulated screw fixation, acute,poa # Mechanical GLF # current smoker # History of IBS, stable Consultations ortho dr Longo Procedures XRay, CTs & MRIs PROCEDURE: X-RAY RIGHT FEMUR, TWO VIEWS ([id number]) INDICATIONS: RT HIP PAIN AFTER INJURY TECHNIQUE: 2 views of the femur were acquired. COMPARISON: None. FINDINGS: Bones: Mildly displaced fracture of the right femoral neck. Soft tissues: No suspicious soft tissue calcifications or masses. IMPRESSION: Right femoral neck fracture. Dictated by: Edith Fuller M.D. on 01/07/2017 at 12:55 PROCEDURE: X-RAY RIGHT HIP COMPLETE, MINIMUM TWO VIEWS ([id number]) INDICATIONS: femoral neck fracture TECHNIQUE: AP pelvis with lateral view(s) of the right hip(s). COMPARISON: [facility], CR, XR PELVIS W LATERAL HIP RT, 01/07/2017 , 12:26. FINDINGS: Bones: Displaced, transcervical fracture of the proximal right femur is noted. Soft tissues: The visualized bowel gas pattern is normal. No suspicious soft tissue calcifications. IMPRESSION: Transcervical proximal right femur fracture. Dictated by: Myriam Gore MD, PhD on 01/08/2017 at 11:20 Other Diagnostics DATE OF SURGERY: 01/08/2017 PREOPERATIVE DIAGNOSIS(ES): Valgus impacted right femoral neck fracture, ICD 10 code S72.001A. POSTOPERATIVE DIAGNOSIS(ES): Valgus impacted right femoral neck fracture, ICD 10 code S72.001A. PROCEDURE: Closed reduction and cannulated screw fixation, valgus impacted right femoral neck fracture. SURGEON: Kenneth Longo MD IMPLANTS UTILIZED: Synthes 7.3 mm cannulated screws, CPT code 08700. ANESTHESIA: General. ESTIMATED BLOOD LOSS: 35 mL. DRAINS: None. COMPLICATIONS: None. SPONGE AND NEEDLE COUNT: Correct. Brief History per HPI 61-year-old lady with no significant past medical history except IBS was transferred from urgent clinic for direct admission for right hip fracture. 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 . A coworker helped her sit up in chair and brought her to urgent care clinic. XR done at showed right femoral neck fracture and transferred for admission Patient states she was seen by PCP > 2yrs ago . No known medical issues except IBS with intermittent diarrhea and constipation. Denies HTN,DM,HLD. She states she is physically active and able to ambulate and take flights of stairs without any chest pain or dyspnea. Current everyday smoker,1/2 pack/day . Never diagnosed with COPD. Denies dyspnea Hospital Course 61-year-old lady with no significant past medical history except IBS was transferred from urgent clinic for direct admission for right hip fracture. # Right femoral neck fracture s/p Closed reduction and cannulated screw fixation , valgus impacted right femoral neck fracture.,acute,poa -pain control with dilaudid, reports history of vomiting with morphine, Percocet for outpatient -orthopedics Dr Longo -dvt ppx post op lovenox for 3 weeks and ASA 325 bid for 3 more weeks #Asymptomatic UTI,ruled out -UA with pyuria. Urine culture no growth . Started ceftriaxone.discontinued # GLF -Patient states it is mechanical. -No further workup # Initial leukocytosis -Likely stress reaction,UTI contributing # current smoker -nicotine patch prn # History of IBS, stable discharged home Exam Vital Signs (Last) Date Time Temp Pulse Resp B/P Pulse Ox O2 Delivery O2 Flow Rate FiO2 01/10/17 11:14 Room Air 01/10/17 09:15 58 01/10/17 07:55 36.7 18 122/72 98 01/08/17 19:05 2 Exam Gen. patient is lying comfortably in hospital bed, underweight HEENT: Head is normocephalic atraumatic, Pupils equal and reactive, extraocular movements intact, Lungs clear to auscultation bilaterally Heart regular rate and rhythm without murmurs gallops or rubs Abdomen soft nontender without hepatosplenomegaly Extremities right hip tenderness on passive movement Psych alert and oriented to person place and time Neuro cranial nerves II through XII are grossly intact Lymph: There is no lymphadenopathy appreciated in the cervical supra infraclavicular regions : no ho Test 01/07/17 15:44 01/08/17 08:20 9/19/17 05:55 01/09/17 19:30 Sodium Level 140mEq/L (134-144) Potassium Level 3.7mEq/L (3.5-5.2) Chloride Level 101mEq/L (97-108) Carbon Dioxide Level 24mmol/L (18-29) Blood Urea Nitrogen 10mg/dL (8-27) Creatinine 0.58mg/dL (0.57-1.00) Estimat Glomerular Filtration Rate 151mL/min (>59) Glucose Level 104mg/dL (60-99) Hemoglobin A1c 5.4% (4.8-5.6) Calcium Level 9.7mg/dL (8.5-10.1) Magnesium Level 1.9mg/dL (1.6-2.6) Total Bilirubin 0.4mg/dL (0.0-1.2) Aspartate Amino Transf (AST/SGOT) 25U/L (0-50) Alanine Aminotransferase (ALT/SGPT) 20U/L (0-32) Alkaline Phosphatase 70U/L (25-165) Total Protein 7.7g/dL (6.4-8.4) Albumin 4.7g/dL (3.4-5.0) Prothrombin Time 10.6sec (8.1-12.5) Prothromb Time International Ratio 0.99ratio White Blood Count 10.8th/mm3 (3.8-10.1) Red Blood Count 3.73mil/mm3 (3.90-5.20) Hemoglobin 11.6g/dL (12.0-15.6) Hematocrit 34.5% (35.0-46.0) Mean Corpuscular Volume 92.5fL (81-100) Mean Corpuscular Hemoglobin 31.1pg (27.0-35.0) Mean Corpuscular Hemoglobin Concent 33.6% (32.0-37.0) Red Cell Distribution Width 12.5% (12.3-15.4) Platelet Count 126bil/L (150-400) Neutrophils (%) (Auto) 79.3% (40-74) Lymphocytes (%) (Auto) 10.5% (14-46) Monocytes (%) (Auto) 9.7% (4-12) Eosinophils (%) (Auto) 0.1% (0-5) Basophils (%) (Auto) 0.1% (0-3) Urine Color Yellow (YELLOW) Urine Appearance Clear (CLEAR,HAZY) Urine pH 5.5 (5.0-8.0) Urine Specific [place] 1.010 (1.003-1.035) Urine Protein Negativemg/dL (NEG,TRACE) Urine Glucose (UA) Negativemg/dL (NEGATIVE) Urine Ketones Negativemg/dL (NEGATIVE) Urine Occult Blood Small (NEGATIVE) Urine Nitrite Negative (NEGATIVE) Urine Bilirubin Negative (NEGATIVE) Urine Urobilinogen Normalmg/dL (NORMAL) Urine Leukocyte Esterase Small (NEGATIVE) Urine RBC 3-10/hpf (0-2) Urine WBC 6-10/hpf (0-5) Urine Epithelial Cells Moderate/hpf (NONE-MOD) Urine Crystals None seen (NONE SEEN) Urine Bacteria None/hpf (NONE-FEW) Urine Hyaline Casts None/lpf (NONE) Urine Granular Casts None seen (NONE SEEN) Urine Waxy Casts None seen (NONE SEEN) Urine Red Blood Cell Casts None seen (NONE SEEN) Urine White Blood Cell Casts None seen (NONE SEEN) Urine Mucus None seen (None Seen) Urine Trichomonas None seen (NONE SEEN) Urine Yeast None (NONE SEEN) Urinalysis Comment None Urine Culture Reflexed Indicated Discharge Medications Discharge Medications Docusate Sodium (Colace) 100 Mg Capsule 100 MG PO BID Prescribed by: JUAN CARLOS VACA MD Enoxaparin (Lovenox) 30 Mg/0.3 Ml Syringe 30 MG SUBQ DAILY Prescribed by: JUAN CARLOS VACA MD As needed Polyethylene Glycol 3350 (Miralax) 17 Gm Powd.pack 17 GM PO DAILY PRN PRN For Constipation Prescribed by: JUAN CARLOS VACA MD oxyCODONE-Acetaminophen 5-325 mg (oxyCODONE-Acetaminophen 5-325 mg) 1 Each Tablet 1 TAB PO Q6H PRN PRN For Pain Prescribed by: JUAN CARLOS VACA MD Followup Plan Disposition: home Patient Instructions You were hospitalist due to Right femoral neck fracture and underwent Closed reduction and cannulated screw fixation . Please continue Lovenox 30 mg subcutaneous daily for DVT prophylaxis for 3 weeks. Follow-up with orthopedics clinic in 2 weeks. Please take [place] for pain control. Follow-up with PCP in: 1 week Provider: Kenneth Longo MD Follow-up in: 2 weeks Time spent 20 minutes Juan Carlos Vaca MD Jan 10, 2017 17:50
== END 2017-01-10 14:40 | disposition home or self-care (01) | DRG 308 ==
LOC: OSC 14:34
PROVIDERS: ADMIT Internal Medicine; ATTEND Internal Medicine
PROC: 0QS634Z Reposition Right Upper Femur with Internal Fixation Device, Percutaneous Approach (ICD-10-PCS; principal; 2017-01-08 16:00)
DX: S72.031A Displaced midcervical fracture of right femur, initial encounter for closed fracture (principal); F17.210 Nicotine dependence, cigarettes, uncomplicated; W18.09XA Striking against other object with subsequent fall, initial encounter; Y93.01 Activity, walking, marching and hiking; Y92.199 Unspecified place in other specified residential institution as the place of occurrence of the external cause; Y99.0 Civilian activity done for income or pay; K58.9 Irritable bowel syndrome, unspecified